=== PATIENT | male | born 1980 | race Caucasian/White ===

== ENCOUNTER 2020-07-25 09:26 | Emergency (ER) | payer BC ==
[~2020-07-25] VITALS: Ht 177.8 cm; Wt 85.0 kg
[~2020-07-25 09:26] MED LIST: NO HOME MEDICATIONS
[2020-07-25 09:32] VITALS: TEMP 97.9
[2020-07-25] MEDS ORDERED: TOPROL XL 50MG50 MG PO (09:40)
[2020-07-25] MEDS ORDERED: LOTENSIN40 MG PO (09:40)
[2020-07-25 09:50] LABS: BASO # 0.1 (0.0-0.2); BASO % 0.7 % (0.0-2.0); EOS # 0.2 (0.0-0.7); EOS % 2.7 % (0-4.0); GRAN # 5.7 (1.4-6.5); HEMATOCRIT 47.6 % (42.0-52.0); HEMOGLOBIN 16.2 g/dl (13.5-18.0); LYMPH # 1.5 (1.2-3.4); MEAN CELL VOLUME 92 fl (80.0-100.0); MEAN CORPUSCULAR HEMOGLOBIN 32 pg (27.0-31.0); MEAN CORPUSCULAR HGB CONC 34 g/dl (33.0-37.0); MEAN PLATELET VOLUME 9.5 fl (7.4-10.4); MONO # 0.8 (0.1-0.6); MONO % 9.1 % (1.7-9.3); PLATELET COUNT 281 K/mm3 (130-400); RED BLOOD COUNT 5.15 M/mm3 (4.20-5.60)
[2020-07-25 09:59] LABS: ALANINE AMINOTRANSFERASE 45 U/L (4-49); ALBUMIN 4.8 gm/dL (3.5-5.0); ALKALINE PHOSPHATASE 56 U/L (50-136); ANION GAP 11 mmol/L (7-16); AST,SGOT 42 U/L (15-37); BILIRUBIN,TOTAL 0.4 mg/dL (0.0-1.0); BLOOD UREA NITROGEN 21 mg/dL (9-20); CALCIUM 9.4 mg/dL (8.4-10.2); CARBON DIOXIDE 25 mmol/L (22-30); CHLORIDE 102 mmol/L (98-107); CREATININE, serum 1.06 (0.66-1.25); GLUCOSE 97 mg/dL (74-106); POTASSIUM 4.2 mmol/L (3.4-5.0); SODIUM 138 mmol/L (137-145); TOTAL PROTEIN 8.5 gm/dL (6.4-8.2)
[2020-07-25 10:08] LABS: PROTHROMBIN TIME 11.3 SECONDS (9.7-12.8)
[2020-07-25 10:10] LABS: PARTIAL THROMBOPLASTIN TIME 31.3 SECONDS (26.0-37.0); TROPONIN-I < 0.012 ng/mL (0.000-0.035)
[2020-07-25 12:45] VITALS: BP 137/81; PULSE 74
== END 2020-07-25 12:45 | disposition home or self-care (01) ==
LOC: COL.ER 09:26
PROVIDERS: Family Medicine
DX: R07.9 Chest pain, unspecified (principal); I10 Essential (primary) hypertension; F17.210 Nicotine dependence, cigarettes, uncomplicated; Z82.49 Family history of ischemic heart disease and other diseases of the circulatory system; Z79.899 Other long term (current) drug therapy
CPT/HCPCS: J2405; J3010